=== PATIENT | male | born 1935 | race Caucasian/White ===

== ENCOUNTER 2022-04-02 17:26 | Inpatient (IN) | payer OTHER, MEDICARE ==
[~2022-04-02] VITALS: Ht 170.2 cm; Wt 67.0 kg
[2022-04-02 18:46] LABS: BASOPHILS ABSOLUTE AUTO 0.02 K/mm3 (0.00-0.23); BASOPHILS PERCENT AUTO 0 % (0-2); EOSINOPHILS ABSOLUTE AUTO 0.22 K/mm3 (0.00-0.68); EOSINOPHILS PERCENT AUTO 4 % (0-6); Hematocrit 25.9 % (37.0-53.0); Hemoglobin 8.1 g/dL (13.5-17.5); IMMATURE GRAN ABSOLUTE AUTO 0.02 K/mm3 (0.00-0.10); IMMATURE GRAN PERCENT AUTO 0 % (0-1); LYMPHOCYTES ABSOLUTE AUTO 0.36 K/mm3 (0.84-5.20); LYMPHOCYTES PERCENT AUTO 6 % (21-46); MONOCYTES ABSOLUTE AUTO 0.53 K/mm3 (0.16-1.47); MONOCYTES PERCENT AUTO 9 % (4-13); Mean Corpuscular HGB 29.5 pg (26.0-34.0); Mean Corpuscular HGB Conc 31.3 g/dL (31.5-36.5); Mean Corpuscular Volume 94 fL (80-100); Mean Platelet Volume 11.8 fL (9.1-12.4); NEUTROPHILS ABSOLUTE AUTO 4.63 K/mm3 (1.96-9.15); NEUTROPHILS PERCENT AUTO 80 % (41-73); Platelet Count 115 K/mm3 (150-400); RDW Coefficient Variation 14.9 % (11.7-14.2); Red Blood Cell Count 2.75 M/mm3 (4.30-5.90); White Blood Cell Count 5.78 K/mm3 (4.00-11.30)
[2022-04-02 18:59] LABS: Calcium, Blood 8.4 mg/dL (8.5-10.1); Creatinine, Blood 2.16 mg/dL (0.60-1.20); Potassium, Blood 4.6 mmol/L (3.5-5.5)
[2022-04-02 19:20] LABS: PCO2 Venous 62.9 mmHg (38-42); pH Blood Venous 7.28 (7.34-7.37)
[2022-04-02 21:59] LABS: Bicarbonate Venous 26.3 mmol/L (24.0-30.0)
[2022-04-02 22:04] LABS: Base Excess Venous 3.1 mmol/L
[2022-04-02 22:12] LABS: Influenza A, PCR NEGATIVE (NEGATIVE); Influenza B, PCR NEGATIVE (NEGATIVE); Resp Syncytial Virus, PCR NEGATIVE (NEGATIVE); SARS-Cov-2 (COVID-19) PCR, MMC NEGATIVE (NEGATIVE)
--- NOTE | 2022-04-02 22:40 | NUR ---
TRANSFER OF CARE REPORT RECEIVED REPORT FROM DESIREE DENIS RN. PT SHORTLY ARRIVED IN THE PCU WITH HIS SPOUSE AND SISTER IN LAW. PT ARRIVED ON 6L VIA NC WITH SPO2~94%. PT APPEARED TO BE SHORT OF BREATH AND EXTREMELY ANXIOUS. RT PROMPTLY CONTACTED AND A BREATHING TREATMENT WAS INITIATED. PT RESPONDED WELL TO INTERVENTION. PT WAS THEN PLACED ON BIPAP 14/7 WITH 4L O2 AND CONTINUED TO SAT >94%. PT ALSO RECEIVED 2MG MORPHINE FOR AIR HUNGER AND EVENTUALLY 5MG OF ZYPREXA PER DR. RIVAS'S ORDERS TO CONTROL PT ANXIETY AND TO PREVENT HIM FROM PULLING AT HIS BIPAP. CONDOM CATH WAS PLACED TO INITATE STRICT I/O CONTROL AND TO PREVENT ANY SKIN BREAKDOWN RELATED TO INCOTINENCE. HR AND BP STABLE UPON ARRIVAL
[2022-04-02 22:48] LABS: Percent Saturation 11.1 % (20.0-50.0)
[2022-04-02 23:43] LABS: Source, Urine Clean Catch
[2022-04-03 00:02] LABS: Bilirubin, Urine Neg (Neg); Blood, Urine 2+ (Neg); Glucose Qualitative, Urine Neg (Neg); Ketones, Urine Neg (Neg); Leukocyte Esterase, Urine 3+ (Neg); Nitrite, Urine Neg (Neg); Protein, Urine 1+ (Neg); Specific Gravity, Urine 1.015 (1.003-1.022); Urobilinogen, Urine NORM (Normal)
[2022-04-03 00:03] LABS: Appearance, Urine Hazy (Clear); Color, Urine Yellow (P-Yellow)
[2022-04-03 00:18] LABS: Bacteria Mod /hpf; Red Blood Cells, Urine 0-2 /hpf (0-2); Squamous Epithelial Cells Few /hpf (Few); White Blood Cells, Urine TNTC /hpf (0-5)
--- NOTE | 2022-04-03 00:45 | NUR ---
UPDATE RT INCREASED BIPAP SETTINGS INCREASED TO 16/8 WITH 4L O2 BLEED. PT RESPONDED WELL TO CHANGE IN PRESSURE SETTINGS. SPO2 >94% NO RESPIRATORY DISTRESS NOTED AT THIS TIME
[2022-04-03 01:23] LABS: Base Excess Venous 2.4 mmol/L; Bicarbonate Venous 26.2 mmol/L (24.0-30.0); PCO2 Venous 48.1 mmHg (38-42); pH Blood Venous 7.37 (7.34-7.37)
[2022-04-03 01:52] LABS: Hematocrit 25.6 % (37.0-53.0); Hemoglobin 7.9 g/dL (13.5-17.5); Mean Corpuscular HGB 28.7 pg (26.0-34.0); Mean Corpuscular HGB Conc 30.9 g/dL (31.5-36.5); Mean Corpuscular Volume 93 fL (80-100); Mean Platelet Volume 11.3 fL (9.1-12.4); Platelet Count 121 K/mm3 (150-400); RDW Coefficient Variation 15.1 % (11.7-14.2); RDW Standard Deviation 50.2 fL (35.1-46.3); Red Blood Cell Count 2.75 M/mm3 (4.30-5.90); White Blood Cell Count 5.25 K/mm3 (4.00-11.30)
[2022-04-03 02:06] LABS: Bun/Creatinine Ratio 20.5 (12.0-20.0); Calcium, Blood 7.9 mg/dL (8.5-10.1); Potassium, Blood 4.7 mmol/L (3.5-5.5)
--- NOTE | 2022-04-03 05:21 | NUR ---
SHIFT SUMMARY PT IS A/Ox1-2 AND IS COOPERATIVE WITH CARE PROVIDED BY STAFF. PT WAS ADMITTED TO THE PCU A LITTLE AFTER 2229 ON 04/02/22 WITH COPD EXACERBATION. PT WAS ON A BIPAP FOR MOST OF THE NIGHT WITH SETTINGS BEING 16/8 AND 4L O2 BLEED AND WAS ABLE TO MAINTAIN SPO2 >92%. PT CAN GET ANXIOUS/OVERWHELMED QUICKELY WHICH OFTEN LEAD HIM TO BECOMING VERY SOB/DESATS. PT RECEIVED 40MG OF LASIX WELL SOLUMEDROL ORDERED PER EMAR. A RESULT, PT HAS HAD GREAT URINE OUTPUT AND HIS RESPIRATORY REQUIREMENTS HAS SIGNFICANTLY IMPROVED. PT DOES HAVE A TENDENCY TO PULL OF BIPAP WHEN AGITATED, BUT HE RESPONDS WELL TO REDIRECTION.. HR AND BP HAVE BEEN STABLE T/O THE SHIFT. PALLATIVE CARE CONSULT ORDERED TO HELP COORDINATE RESOURCES FOR PT AND HIS FAM. VSS T/O MY SHIFT
--- NOTE | 2022-04-03 09:43 | NUR ---
Spiritual Care Request Attempted. Pt. was in deep sleep and could not be roused. Check with attending nurse, Pt. has been somnilent all morning. Will check on Pt. later in the day.
--- NOTE | 2022-04-03 11:33 | NUR ---
Spiritual Care Pt. Request Pt. is awake on a CPAP. Spouse and other family are present. Spouse welcomes my visit. Pt. responds minimally during the visit, but is pleasant. family is unsettled about the fluid in the Pts. lungs. Facilitate a brief life review. Pt. displays evidence of somnolence. Prayed for Pt. and family verbalized gratitude for the spiritual care visit.
--- NOTE | 2022-04-03 16:05 | NUR ---
Spoke with Primary RN Claudia and discussed case. Spouse at bedside and appears anxious due to not knowing plan of care or Pt's clinical status. Pt resting in bed with his eyes closed and on BIPAP. Spouse and Spouse's sister at bedsdie. Pt remains with his eyes closed for much of the visit. Offered active listening as spouse Kiran reports Pt was D/C from hospital in [place] approximately 1 month ago. Kiran struggles with providing accurate information for reason of previous hospital stay and care that was provided. She states being told Pt had an arryhthmia and received shock. She also reports hospital was recommending hospice but is unsure why. She reports when they returned home and saw Pt's PCP he suggested home health first. Continued active listening as Kiran reports prior to Pt's hospital stay in [place] he was independent of his ADLs but care requires has increased since. Gentle education on disease process including trajector. Discussed the importance of planning for the future as disease progresses and routine conversations with PCP. Dr Estrada in to examine Pt and discuss plan of care. Plan is to receive records from hospital in [place]. Palliative Care will remain available for supportive and therapeutic visits.
--- NOTE | 2022-04-03 17:28 | NUR ---
SHIFT SUMMARY; ASSUMED CARE AT 0700. SLEEPING AND DIFFICULT TO WAKE WITH PAINFUL STIMULI, MOANS, OPENS EYES AND GOES BACK TO SLEEP. DOES NOT ANSWER QUESTIONS. NC 3L WHEN ASSUMING CARE. BECOMES AGITATED AND WRESTLESS AROUND 1000. SATS DECREASED TO LOW 80'S. PLACED BACK ON BIPAP M SERIES. SATS IMPROVED TO MID 90'S WITH 4L BLEED IN 02. SPOUSE AT BEDSIDE IN AFTERNOON AND GRADUALLY MORE AWAKE. STATES NAME BUT UNABLE TO RECALL WHERE HE CURRENLTY IS. RECOGNIZES SPOUSE WITHOUT DIFFICULTY. MOVES ALL FOUR EXTREMETIES AND REPOSITIONS SELF IN BED NEEDED. CONDOM CATH IN PLACE DRAINING TO GRAVITY BAG. ORAL CARE AND LINEN CHANGE TODAY, VSS, INTERMITANT BREAKS THROUGHOUT REST OF SHIFT BETWEEN BIPAP AND NC AT 3L. WILL CONTINUE TO MONITOR AND TREAT UNTIL CHANGE OF SHIFT.
[2022-04-04 04:33] LABS: Base Excess Venous 11.5 mmol/L; Bicarbonate Venous 33.5 mmol/L (24.0-30.0); PCO2 Venous 48.5 mmHg (38-42); pH Blood Venous 7.47 (7.34-7.37)
[2022-04-04 04:42] LABS: BASOPHILS PERCENT AUTO 0 % (0-2); EOSINOPHILS PERCENT AUTO 0 % (0-6); Hematocrit 27.3 % (37.0-53.0); Hemoglobin 8.4 g/dL (13.5-17.5); IMMATURE GRAN ABSOLUTE AUTO 0.03 K/mm3 (0.00-0.10); IMMATURE GRAN PERCENT AUTO 0 % (0-1); LYMPHOCYTES ABSOLUTE AUTO 0.18 K/mm3 (0.84-5.20); LYMPHOCYTES PERCENT AUTO 2 % (21-46); MONOCYTES ABSOLUTE AUTO 0.21 K/mm3 (0.16-1.47); MONOCYTES PERCENT AUTO 3 % (4-13); Mean Corpuscular HGB 28.2 pg (26.0-34.0); Mean Corpuscular HGB Conc 30.8 g/dL (31.5-36.5); Mean Corpuscular Volume 92 fL (80-100); Mean Platelet Volume 11.1 fL (9.1-12.4); NEUTROPHILS ABSOLUTE AUTO 7.62 K/mm3 (1.96-9.15); NEUTROPHILS PERCENT AUTO 95 % (41-73); Platelet Count 146 K/mm3 (150-400); RDW Standard Deviation 49.1 fL (35.1-46.3); Red Blood Cell Count 2.98 M/mm3 (4.30-5.90); White Blood Cell Count 8.04 K/mm3 (4.00-11.30)
[2022-04-04 05:03] LABS: Albumin, Blood 2.5 g/dL (3.4-5.0); Albumin/Globulin Ratio 0.8 (0.8-1.8); Bilirubin, Total 0.5 mg/dL (0.1-1.0); Calcium, Blood 8.3 mg/dL (8.5-10.1); Globulin, Blood 3.3 g/dL (2.2-4.0); Total Protein, Blood 5.8 g/dL (6.4-8.2)
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
--- NOTE | 2022-04-04 06:51 | NUR ---
THIS RN CALLED PROVIDER ABOUT PT BEING NPO AND IF ABLE TO HAVE SOME WATER; PROVIDER STATED SHE WOULD LIKE A BED SIDE SWALLOW DONE FIRST. PROVIDER SAID THIS RN COULD PERFORM ONE AT BEDSIDE AND IF PT TOLERATED, HE COULD HAVE SMALL DRINKS OF WATER AND ADVANCE TO CARDIAC DIET. THIS RN COMPLETED BED SIDE SWALLOW EVAL, PT TOLERATED DRINKING WATER W/NO STRAW WELL. PT NEEDED REMINDERS TO TAKE SMALL SIPS
--- NOTE | 2022-04-04 14:08 | NUR ---
PT TRANSFERRED TO ROOM 349, STATUS CHANGED TO MEDICAL NO TELE. NO ACUTE CHANGE FOR THE SHIFT, DIET RESUMED PT TOLERATED WELL. PT REMAINED CONFUSED AND FORGETFUL AT TIMES, TRYING TO GE OUT OF BED ASKING FOR TREATS, WAS CALLED AND WAS GIVEN UPDATE CAME IN TO VISIT PT WELL. PT RIPPED OUT THE IB PALCED ON RFA, ANTOHER ONE PLACED IN LEFT ARM WRAPPED WITH COBAN TO SECURE. PT ALSO WAS PULLING ON NASAL CANNULA AND WILL DESAT TO 80'S RECOVERS QUICK AFTER O2 WAS REAPPLIED. PT STAYED ABOVE 90% ON 4L OF O2, BIPAP ON STANBDY PRN, NOC RN REPORTED PT UNABLE TO TOLERATE. NO OTHER ISSUES REPORTED, ALL BELONGINGS SENT WITH THE PT, FAMILY AT BEDSIDE DURING TRANSPORT, ACCOMPANIED VIA BED BY PCT. REPORT GIVEN TO CONSTANCE LILLY
--- NOTE | 2022-04-04 19:19 | NUR ---
PATIENT IS ALERT AND ORIENTED TO SELF AND FOLLOWING DIRECTIONS. HE ATTEMPTED TO GET OOB AND TOOK OFF HIS OXYGEN 3 TIMES BEFORE HE WAS PLACED IN BILATERAL WRIST RESTRAINTS A MARIANNA VEST. PATIENT FED HIMSELF DINNER. ON 5L O2 VIA NC. INCONTINENT OF URINE, ATTENDS IN PLACE. REPORT GIVEN TO ONCOMING RN
[2022-04-05] MEDS ORDERED: CELEXA10 MG PO (00:32)
[2022-04-05] MEDS ORDERED: LISI5 PO (00:32)
[2022-04-05] MEDS ORDERED: Hytrin2 MG PO (00:33)
[2022-04-05] MEDS ORDERED: SYNTHROID75 MCG PO (00:33)
[2022-04-05] MEDS ORDERED: PLAVIX75 MG PO (00:34)
[2022-04-05] MEDS ORDERED: QUETIAPINE FUMA25 MG PO (00:35)
[2022-04-05] MEDS ORDERED: HYDROCODONE-AC1 EAC7 PO (00:35)
[2022-04-05] MEDS ORDERED: Amiodarone HCl200 MG PO (00:36)
[2022-04-05] MEDS ORDERED: CLON.5 PO (00:37)
[2022-04-05] MEDS ORDERED: Ventolin/Prove6.7 GM INH (00:37)
--- NOTE | 2022-04-05 03:50 | NUR ---
NIGHTSHIFT SUMMARY Patient sleeping soundly at the start of shift, then woke up and removed oxygen NC, and trying to get out of bed. Repostioned patient & performed restraint assessment. Patient awake most of the night, he kept pulling off oxygen, and tore off depends. He would yell out help occasionally, staff would reorient to situation. Vitals stable, will continue to monitor.
[2022-04-05 06:06] LABS: Albumin, Blood 2.5 g/dL (3.4-5.0); Albumin/Globulin Ratio 0.8 (0.8-1.8); Bilirubin, Total 0.3 mg/dL (0.1-1.0); Bun/Creatinine Ratio 27.9 (12.0-20.0); Calcium, Blood 8.3 mg/dL (8.5-10.1); Creatinine, Blood 1.97 mg/dL (0.60-1.20); Total Protein, Blood 5.5 g/dL (6.4-8.2)
--- NOTE | 2022-04-05 20:04 | NUR ---
PT WAS VISITED BY HIS TODAY. OXYGEN NEEDS VARIED BETWEEN 2-5LPM TO MAINTAIN SATS. PT WOULD FREQUENTLY REMOVE HIS OXYGEN TUBING, BUT HE IS COOPERATIVE AND REDIRECTABLE BY STAFF. AT THE END OF THE SHIFT, PT PULLED OUT HIS IV AND WAS PLACED IN BILAT SOFT WRIST RESTRAINTS.
--- NOTE | 2022-04-06 04:34 | NUR ---
NIGHTSHIFT SUMMARY Patient placed in yanique vest/soft wrist restraints for safety/keep lines intact. RN placed new IV at shift change, an hour later patient got free from wrist restraints, pulled out IV and was trying to climb over bed rail. New IV placed in Right wrist, restraints reapplied. Assited patient with repostioning, fluid intake. Patient removed depends several times, incontinent of urine. IV ABX administred, IV fluids infusing KVO. Patient awake most of the night, restless, removing O2 NC, and calling out for help. Patient oriented to self. Administred Morphine IV for pain, PRN not effective. Vitals stable this shift.
[2022-04-06 06:21] LABS: Bun/Creatinine Ratio 27.7 (12.0-20.0); Calcium, Blood 8.1 mg/dL (8.5-10.1); Creatinine, Blood 1.91 mg/dL (0.60-1.20); Potassium, Blood 4.4 mmol/L (3.5-5.5)
--- NOTE | 2022-04-06 19:41 | NUR ---
SHIFT SUMMARY DURING SHIFT REPORT POSTAL INSPECTOR CALLED BOTH DAY & NOC RNs (JOSE RN & DELONTE RN) INTO ROOM STATING PT WAS ACTING VERY DIFFERENT. ONCE IN THE ROOM, PT APPEARED TO BE SEIZING & APNEIC, PALE AND NO HEART TONES HEARD UPON AUCSCULTATION ALTHOUGH RADIAL PULSES WERE PALPABLE. A RAPID RESPONSE WAS CALLED AT 1919, MD ARRIVED AND PRONOUNCED PT AT 1927. PT'S JOLLY NOTIFIED BY PHONE CALL. PALLIATIVE CARE LAURIE RN SPOKE WITH . PT'S CHOSE [facility].
--- NOTE | 2022-04-06 19:46 | NUR ---
Respond to rapid response. pt non responsive and slowing respirations. Pt looks eminent. He is DNR witfe notified of his decline. plan is to deescalte and all comfortaable natural . Advised will hold hid hand and tell him she loves him and prayed for him. She decided to use [facility] so his frends could stop by and pay respects. updated [facility] nurse and called to comfort her and make sure she was not alone. will have chaplian call her.
== END 2022-04-06 20:44 | DRG 193 ==
LOC: ER 17:26 → MEDS 20:34 → PCU 20:34 → MEDS 04-04 13:30
PROVIDERS: Family Medicine; Internal Medicine; Student in an Organized Health Care Education/Training Program; ADMIT Internal Medicine
PROC: 5A09457 Assistance with Respiratory Ventilation, 24-96 Consecutive Hours, Continuous Positive Airway Pressure (ICD-10-PCS; principal; 2022-04-02)
DX: J15.9 Unspecified bacterial pneumonia (principal); G92.8 Other toxic encephalopathy; J96.01 Acute respiratory failure with hypoxia; J96.02 Acute respiratory failure with hypercapnia; J44.1 Chronic obstructive pulmonary disease with (acute) exacerbation; N17.9 Acute kidney failure, unspecified; N39.0 Urinary tract infection, site not specified; R78.81 Bacteremia; J44.0 Chronic obstructive pulmonary disease with (acute) lower respiratory infection; I50.30 Unspecified diastolic (congestive) heart failure; R63.4 Abnormal weight loss; D64.9 Anemia, unspecified; K59.00 Constipation, unspecified; R41.3 Other amnesia; Z66 Do not resuscitate; R74.01 Elevation of levels of liver transaminase levels; F01.50 Vascular dementia, unspecified severity, without behavioral disturbance, psychotic disturbance, mood disturbance, and anxiety; B95.2 Enterococcus as the cause of diseases classified elsewhere; Z68.22 Body mass index [BMI] 22.0-22.9, adult; Z87.891 Personal history of nicotine dependence; Z78.1 Physical restraint status; Z99.81 Dependence on supplemental oxygen; D63.8 Anemia in other chronic diseases classified elsewhere
CPT/HCPCS: 0241U; 36415; 71045; 80048; 80053; 81001; 82728; 82803; 82947; 83540; 83550; 83880; 85025; 85027; 85379; 87040; 87077; 87086; 87186; 93005; 93010; 93306; 94640; 94644; 94660; 94664; 94760; 94762; 96374; 96375; 99285-25; A9270; J0295; J0696; J1650; J1940; J2270; J2930; J3475; J7050; J7512